=== PATIENT | female | born 1975 | race Hispanic/Latino ===

== ENCOUNTER 2018-01-27 11:27 | Emergency (ER) | payer SELFPAY ==
[2018-01-27] MEDS ORDERED: ONDANSETRON INJ 4 MG/2 ML VIAL ONE (11:28)
[2018-01-27] MEDS ORDERED: SODIUM CHLORIDE 0.9% (FLUSH) 10 ML SYG IV PRN (11:57)
[2018-01-27] MEDS ORDERED: ONDANSETRON INJ 4 MG/2 ML VIAL IV ONE (12:00)
[2018-01-27] MEDS ORDERED: MULTIPLE VITAMIN INJ 10 ML, THIAMINE HCL INJ 100 MG in SODIUM CHLORIDE 0.9% 1000ML 1,00... IVS SCH (12:00)
[2018-01-27] MEDS ORDERED: THIAMINE HCL INJ 100 MG/ML VIAL ONE (12:01)
[2018-01-27] MEDS ORDERED: SODIUM CHLORIDE 0.9% 1000ML 1,000 ML ONE (12:01)
[2018-01-27] MEDS ORDERED: MULTIPLE VITAMIN 10 ML VIAL ONE (12:02)
--- NOTE | 2018-01-27 12:02 | ED.PDOC ---
History of Present Illness - General Chief Complaint: Neuro Symptoms/Deficits Stated Complaint: AMS Time Seen by Provider: 01/27/18 11:34 Source: other Exam Limitations: clinical condition, intoxication, language barrier - History of Present Illness Initial Comments: PT PRESENTS TO THE ED WITH HISTORY OF SEIZURE THAT OCCURRED JUST GLUE COOK. EMS WAS CALLED DUE TO AN EPISODE OF CHILLS AND BLURRED VISION. EMS REPORTS WITNESSED SEIZURE ACTIVITY AFTER THEIR ARRIVAL THAT LASTED APPROXIMATELY 1 MINUTE FOLLOWED BY CONFUSION AND VOMITING. ACCORDING TO CO-WORKER AT BEDSIDE PT HAS A HISTORY OF SEIZURES AND ALCOHOLISM. HPI AND ROS LIMITED DUE TO PT MENTAL STATUS. Timing/Duration: resolved prior to arrival Severity: moderate Associated Symptoms: seizure Allergies/Adverse Reactions: Allergies NO KNOWN ALLERGY Allergy (Verified 01/27/18 12:24) Review of Systems - Review of Systems Constitutional: States: see HPI, chills. Denies: fever EENTM: States: see HPI, blurred vision Respiratory: States: see HPI, cough. Denies: short of breath Cardiology: States: see HPI Gastrointestinal/Abdominal: States: see HPI Genitourinary: States: see HPI Musculoskeletal: States: see HPI Neurological: States: see HPI, seizure Endocrine: States: see HPI Past Medical History (General) - Patient Medical History Hx Seizures: Yes Hx Stroke: No Hx Dementia: No Hx Asthma: No Hx of COPD: No Hx Cardiac Disorders: No Hx Congestive Heart Failure: No Hx Pacemaker: No Hx Hypertension: No Hx Thyroid Disease: No Hx Diabetes: No Hx Gastroesophageal Reflux: No Hx Renal Disease: No Hx of HIV: No Hx MRSA: No - Social History Hx Tobacco Use: Yes Hx Chewing Tobacco Use: No Hx Alcohol Use: Yes Hx Substance Use: Yes Feels Threatened In Home Enviroment: No Feels Threatened In a Relationship: No Hx Physical Abuse: No Hx Emotional Abuse: No Hx Suspected Abuse: No - Female History Patient is a Female of Child Bearing Age (10 -59 yrs old): Yes Patient : Yes - unknown Family Medical History - Family History Mother Family History: Unknown Physical Exam - Physical Exam General Appearance: Alert, Well Developed, Well Groomed, Well Hydrated, Other - APPEARS CONFUSED, NOT ANSWERING QUESTIONS, STRONG SMELL OF ETOH Eye Exam: bilateral normal Ears, Nose, Throat: hearing grossly normal, normal ENT inspection Neck: supple, normal inspection Respiratory: lungs clear, normal breath sounds, no respiratory distress Cardiovascular/Chest: regular rate, rhythm, no murmur Gastrointestinal/Abdominal: non tender, soft, mass - FIRM, SLIGHTLY TENDER, LOCATED IN THE SUPRAPUBIC REGION, CO-WORKER AT BEDSIDE STATES IS CHRONIC Extremity: non-tender, normal inspection Neurologic: alert Skin Exam: normal color, warm/dry Progress - Progress Progress: 01/27/18 12:00 PT CONTINUING TO EXHIBIT INTERMITTENT SEIZURE ACTIVITY FOLLOWED BY DRY HEAVING. IV ATIVAN AND IV PHENERGAN ORDERED. 01/27/18 13:25 PT RESTING COMFORTABLY, NOW ANSWERING QUESTIONS APPROPRIATELY. NO FURTHER SEIZURE ACTIVITY AFTER IV ATIVAN. LABS AND DIAGNOSTICS DISCUSSED WITH PATIENT AND FRIEND AT BEDSIDE. - Results/Orders Results/Orders: 01/27/18 11:57 Sodium Chloride 0.9% (Flush) [Saline Flush Syringe] 10 ml IV PRN PRN 01/27/18 11:58 IV Care:Saline Lock per Protoc QSHIFT Telemetry Q4H URINE DRUG SCREEN, 7 ASSAY Stat URINALYSIS Stat 01/27/18 12:00 CARDIAC ENZYME GROUP Stat COMPLETE METABOLIC PROFILE Stat Multiple Vitamin Inj [MVI Injectable] 10 ml Thiamine HCl Inj 100 mg Sodium Chloride 0.9% 1000ML [Ns 1000 ml] 1,000 ml IVS Q24H EKG STAT Laboratory Results - last 24 hr 01/27/18 01/27/18 01/27/18 12:00 12:00 12:00 WBC 11.2 H RBC 4.11 L Hgb 11.9 L Hct 38.7 MCV 94.0 MCH 28.9 MCHC 30.7 L RDW 18.2 H Plt Count 315 MPV 8.3 Absolute Neuts (auto) 8.40 H Absolute Lymphs (auto) 1.80 Absolute Monos (auto) 0.90 H Absolute Eos (auto) 0.00 Absolute Basos (auto) 0.10 Neutrophils % 75.2 Lymphocytes % 15.7 L Monocytes % 8.0 Eosinophils % 0.2 L Basophils % 0.9 PT 9.2 INR 0.92 PTT (SP) 23.3 pCO2 pO2 HCO3 ABG pH ABG O2 Saturation ABG Base Excess ABG Deoxyhemoglobin Oxyhemoglobin % Carboxyhemoglobin % Methemoglobin % Sat Calc Total Hemoglobin Sodium 147 H Potassium 5.8 H Chloride 104 Carbon Dioxide 19 L Anion Gap 29.8 H BUN < 5 L Creatinine 1.11 BUN/Creatinine Ratio 4.5 L Random Glucose 133 H Serum Osmolality 291.6 Calcium 10.9 H Total Bilirubin 0.4 AST 107 H Alkaline Phosphatase 171 H Creatine Kinase 192 H CK-MB (CK-2) 2.4 CK-MB (CK-2) % Not Reportable Troponin I < 0.02 Serum Total Protein 8.3 H Albumin 4.3 Globulin 4.0 H Albumin/Globulin Ratio 1.1 Lipase Serum HCG, Qual Ethyl Alcohol 01/27/18 01/27/18 01/27/18 12:00 12:00 12:39 WBC RBC Hgb Hct MCV MCH MCHC RDW Plt Count MPV Absolute Neuts (auto) Absolute Lymphs (auto) Absolute Monos (auto) Absolute Eos (auto) Absolute Basos (auto) Neutrophils % Lymphocytes % Monocytes % Eosinophils % Basophils % PT INR PTT (SP) pCO2 33 pO2 75 L HCO3 20.5 ABG pH 7.420 ABG O2 Saturation 95.3 ABG Base Excess -2.9 ABG Deoxyhemoglobin 4.6 Oxyhemoglobin % 92.1 L Carboxyhemoglobin % 0.9 Methemoglobin % Sat 2.4 H Calc Total Hemoglobin 9.9 L Sodium Potassium Chloride Carbon Dioxide Anion Gap BUN Creatinine BUN/Creatinine Ratio Random Glucose Serum Osmolality Calcium Total Bilirubin AST Alkaline Phosphatase Creatine Kinase CK-MB (CK-2) CK-MB (CK-2) % Troponin I Serum Total Protein Albumin Globulin Albumin/Globulin Ratio Lipase Serum HCG, Qual Negative Ethyl Alcohol 23.30 01/27/18 12:51 WBC RBC Hgb Hct MCV MCH MCHC RDW Plt Count MPV Absolute Neuts (auto) Absolute Lymphs (auto) Absolute Monos (auto) Absolute Eos (auto) Absolute Basos (auto) Neutrophils % Lymphocytes % Monocytes % Eosinophils % Basophils % PT INR PTT (SP) pCO2 pO2 HCO3 ABG pH ABG O2 Saturation ABG Base Excess ABG Deoxyhemoglobin Oxyhemoglobin % Carboxyhemoglobin % Methemoglobin % Sat Calc Total Hemoglobin Sodium Potassium Chloride Carbon Dioxide Anion Gap BUN Creatinine BUN/Creatinine Ratio Random Glucose Serum Osmolality Calcium Total Bilirubin AST Alkaline Phosphatase Creatine Kinase CK-MB (CK-2) CK-MB (CK-2) % Troponin I Serum Total Protein Albumin Globulin Albumin/Globulin Ratio Lipase 57 H Serum HCG, Qual Ethyl Alcohol - EKG/XRAY/CT EKG: Sinus, Tachy - @116BPM, LAD, LBBB - NO OLD EKG FOR COMPARISON. CT Ordered: No CT Interpretation Call Back: No Departure - Departure Clinical Impression: Alcoholic ketoacidosis, Alcohol withdrawal seizure, Hyperkalemia, History of alcohol abuse, Vomiting Time of Disposition: 13:30 Disposition: Transfer to Hospital Condition: Poor Departure Forms: ED Discharge - Pt. Copy, Patient Portal Self Enrollment Transfer to Outside Facility - Transfer Information Accepting Provider:: DR. SANCHEZ Accepting Facility: [facility] Reason for Transfer: ICU
[2018-01-27] MEDS ORDERED: PROMETHAZINE HCL INJ 25 MG in SODIUM CHLORIDE 0.9% 50ML 50 ML IVPB ONE (12:07)
[2018-01-27] MEDS ORDERED: PROMETHAZINE HCL INJ 25 MG/ML VIAL ONE (12:09)
[2018-01-27] MEDS ORDERED: SODIUM CHLORIDE 0.9% 50ML 50 ML ONE (12:10)
[2018-01-27 14:47] VITALS: BP 113/80; TEMP 98.3; O2SAT 98
== END 2018-01-27 15:00 | disposition short-term general hospital (02) ==
LOC: EDBD 11:27 → ER 11:27
DX: F10.239 Alcohol dependence with withdrawal, unspecified (principal); E87.2 Acidosis; G40.89 Other seizures; R11.10 Vomiting, unspecified; I44.7 Left bundle-branch block, unspecified; R00.0 Tachycardia, unspecified; Z87.891 Personal history of nicotine dependence
CPT/HCPCS: 36415; 36600; 80053; 80307; 80320; 81001; 82550; 82553; 82803; 82805; 83690; 84484; 84703; 85025; 85610; 85730; 93005; A4216; J2060; J2405; J2550; J3411; J7030

== ENCOUNTER 2018-08-18 12:24 | Emergency (ER) | payer SELFPAY ==
[2018-08-18] MEDS ORDERED: SODIUM CHLORIDE 0.9% 1000ML 1,000 ML IVS ONE (12:45)
[2018-08-18] MEDS ORDERED: ONDANSETRON INJ 4 MG/2 ML VIAL IV ONE (12:45)
[2018-08-18] MEDS ORDERED: KETOROLAC TROMETHAMINE INJ 30 MG/ML VIAL IV ONE (12:45)
--- NOTE | 2018-08-18 12:48 | ED.PDOC ---
History of Present Illness - General Chief Complaint: Neuro Symptoms/Deficits Stated Complaint: seizure Time Seen by Provider: 08/18/18 12:38 Source: block tester Exam Limitations: language barrier - History of Present Illness Initial Comments: Pt's employer witnessed a generalized seizure lasting less than 5 min. Pt has hx of seizures but takes no meds. Pt occasionally drinks etoh heavily. Pt has a headache and nausea. Timing/Duration: 1/2 hour Severity: severe Improving Factors: rest Worsening Factors: nothing Associated Symptoms: confusion, loss of consciousness, nausea/vomiting, seizures Allergies/Adverse Reactions: Allergies NO KNOWN ALLERGY Allergy (Verified 01/27/18 12:24) Home Medications: Ambulatory Orders Phenytoin Sodium Cap Extended [Dilantin Cap] 100 mg PO TID #100 cap 08/18/18 RX: Clonazepam 1 mg PO BID #10 tab 08/18/18 Review of Systems - Review of Systems Constitutional: Denies: chills, fever EENTM: States: no symptoms reported Respiratory: Denies: cough, short of breath Cardiology: Denies: chest pain, edema Gastrointestinal/Abdominal: States: nausea. Denies: abdominal pain, vomiting Genitourinary: States: no symptoms reported Musculoskeletal: States: no symptoms reported Skin: States: no symptoms reported Neurological: States: headache Endocrine: States: no symptoms reported Hematologic/Lymphatic: States: no symptoms reported Past Medical History (General) - Patient Medical History Hx Seizures: Yes Hx Stroke: No Hx Dementia: No Hx Asthma: No Hx of COPD: No Hx Cardiac Disorders: No Hx Congestive Heart Failure: No Hx Pacemaker: No Hx Hypertension: No Hx Thyroid Disease: No Hx Diabetes: No Hx Gastroesophageal Reflux: No Hx Renal Disease: No Hx of HIV: No Hx MRSA: No - Social History Hx Tobacco Use: Yes Hx Chewing Tobacco Use: No Hx Alcohol Use: Yes Hx Substance Use: Yes Hx Physical Abuse: No Hx Emotional Abuse: No Hx Suspected Abuse: No - Female History Patient : Yes - unknown Family Medical History - Family History Mother Family History: Unknown Physical Exam - Physical Exam General Appearance: Alert, Lethargic Eye Exam: bilateral normal ENT Exam: pharynx normal, other - bite injury to edges of tongue Neck: non-tender, full range of motion, supple Respiratory: lungs clear, normal breath sounds, no respiratory distress Cardiovascular/Chest: normal peripheral pulses, regular rate, rhythm, no edema Gastrointestinal/Abdominal: normal bowel sounds, non tender, soft Extremities Exam: non-tender, no edema Mental Status: alert, lethargic engine lathe tender Exam: PERRL Motor/Sensory: no motor deficit, no sensory deficit Skin Exam: normal color, warm/dry Departure - Departure Clinical Impression: Seizure disorder Disposition: Discharge to Home or Self Care Condition: Fair Departure Forms: ED Discharge - Pt. Copy, Patient Portal Self Enrollment Prescriptions: RX: Clonazepam 1 mg PO BID #10 tab Phenytoin Sodium Cap Extended [Dilantin Cap] 100 mg PO TID #100 cap Home Medications: Ambulatory Orders Phenytoin Sodium Cap Extended [Dilantin Cap] 100 mg PO TID #100 cap 08/18/18 RX: Clonazepam 1 mg PO BID #10 tab 08/18/18
[2018-08-18 14:02] VITALS: BP 114/72; TEMP 99.1; O2SAT 92
== END 2018-08-18 13:48 | disposition home or self-care (01) ==
LOC: ER 12:27
DX: G40.909 Epilepsy, unspecified, not intractable, without status epilepticus (principal); R51 Headache; R11.0 Nausea; Z87.891 Personal history of nicotine dependence
CPT/HCPCS: 36415; 80053; 80320; 85025; J1885; J2060; J2405; J7030